=== PATIENT | female | born 1945 | race African-American/Black ===

== ENCOUNTER 2017-02-19 12:05 | Day surgery (SDC) | payer OTHER ==
[2017-02-11 15:59] VITALS: BMI 23.6
[~2017-02-19 12:05] MED LIST: ACETAMINOPHEN 325 MG TABLET (FP) PO PRN
[2017-02-19] MEDS ORDERED: ONDANSETRON 4 MG/2 ML VIAL ONE (12:21)
[2017-02-19] MEDS ORDERED: PROPOFOL 20 ML ONE (12:21)
[2017-02-19] MEDS ORDERED: MIDAZOLAM HCL 2 MG/2 ML SINGLE DOSE VIAL ONE (12:21)
[2017-02-19] MEDS: CYCLOPENTOLATE HCL 1% OPHTH SOLN 2 ML BOTTLE ONE ×5 (12:30→13:10)
[2017-02-19] MEDS: PHENYLEPHRINE 2.5% OPHTH SOLN 15 ML BOTTLE ONE ×5 (12:30→13:10)
[2017-02-19] MEDS: TROPICAMIDE 1% OPHTH SOLN 15 ML BOTTLE ONE ×5 (12:30→13:10)
[2017-02-19] MEDS: GENTAMICIN SULFATE 0.3% OPHTHALMIC (EYE DROPS) 5ML BOTTLE ONE ×5 (12:30→13:10)
[2017-02-19] MEDS ORDERED: BETAXOLOL HCL 0.25% OPHTHALMIC 10 ML DROPSBTL ONE (13:04)
[2017-02-19] MEDS ORDERED: LIDOCAINE HCL/PF 2% SDV 5ML VIAL ONE (13:04)
[2017-02-19] MEDS ORDERED: BUPIVACAINE HCL/PF 0.5% (5MG/ML) 10 ML VIAL ONE (13:04)
[2017-02-19] MEDS ORDERED: LIDOCAINE HCL 2% JELLY 10 ML CARTRIDGE ONE (13:05)
[2017-02-19] MEDS ORDERED: CARBACHOL 0.01% INTRA-OCULAR 1.5 ML VIAL ONE (13:06)
[2017-02-19] MEDS ORDERED: NEO/POLYMYX B SULF/DEXAMETH OPHTHALMIC 5ML BOTTLE ONE (13:06)
[2017-02-19] MEDS ORDERED: ACETYLCHOLINE 1:100 INTRA-OCUL 20 MG/2 ML KIT ONE (13:06)
[2017-02-19 14:51] VITALS: TEMP 98.6
[2017-02-19 15:20] VITALS: BP 138/55; PULSE 52
--- NOTE | 2017-02-20 09:24 | OP ---
DATE OF OPERATION: 02/19/2017 TYPE OF PROCEDURES PLANNED: Extracapsular cataract extraction, phacoemulsification, insertion of posterior chamber lens implant, left eye. SURGEON: Raheel Dos Santos MD DIRECTOR OF REVENUE CYCLE MANAGEMENT SURGEON: Raheel Dos Santos MD ANESTHESIA: Local with standby. ANESTHESIOLOGIST: Abel Caraballo MD COMPLICATIONS: None. PREOPERATIVE DIAGNOSIS: Cataract, left eye. POSTOPERATIVE DIAGNOSIS: Cataract, left eye. FINDINGS AND PROCEDURE: After successful peribulbar anesthesia was given to the left eye, the patient was prepped and draped in the usual manner to expose the left eye. A lid speculum was inserted and the microscope brought into position over the eye. A superior fornix-based flap was then fashioned for 12 mm using Tez scissors and 0.12 forceps and hemostasis achieved with Wet-field cautery. A limbal groove was then fashioned for 3 mm with a crescent blade, dissecting anteriorly into clear cornea, and then a 3-mm blade was used to enter the anterior chamber. Under Viscoat 360 degrees, anterior capsulotomy was performed and removed from the eye and phacoemulsification of the entire nucleus was then done approximately 2 minutes' time, followed by irrigation and aspiration of all cortical material, leaving an intact posterior capsule and a red reflex present. Provisc was injected into the posterior chamber to deepen the posterior capsule then the implant was inspected carefully. Found to be free of defects or being flawed, it was folded and placed in the Provisc-filled cartridge. The cartridge was placed in the injector and the implant was injected into the eye such that the inferior haptic was in the inferior capsular bag and the superior haptic was in the superior capsular bag and maintained in the horizontal position with a Sinskey hook. It should be noted that there was a button hole on the crescent, 3-mm incision and it was necessary to put in 2 sutures to close the wound down to make it aqueous-tight. It should be noted that the Provisc was aspirated out and replaced with Miochol, Miostat and BSS. The wound was closed with 2 interrupted 2-0 Ethibond sutures because of the button hole as mentioned before. Conjunctival tenon flap was then reapproximated and at this point the implant was fixated in the capsular bag, centrally located with a round pupil, intact posterior capsule and a red reflex present. Topical Betoptic, as well as Maxitrol ophthalmic as mentioned was placed, as was bacitracin, erythromycin ophthalmic ointment, and the speculum and the Tegaderm strips were removed from the lashes. The lids were closed and a patch and shield placed on the eye. The patient was then discharged from the operating room to the recovery area in good condition, having tolerated the procedure well. Byron CARDOZO/[id number]
== END 2017-02-19 15:20 | disposition home or self-care (01) ==
LOC: FASU 12:05
PROVIDERS: ATTEND Ophthalmology
PROC: 08RK3JZ Replacement of Left Lens with Synthetic Substitute, Percutaneous Approach (ICD-10-PCS; principal; 2017-02-19 13:27)
DX: H26.8 Other specified cataract (principal)